=== PATIENT | female | born 1980 | race African-American/Black ===

== ENCOUNTER 2021-12-05 00:37 | Emergency (ER) | payer SELFPAY ==
[2021-12-05] MEDS ORDERED: DIPHENHYDRAMINE 25 MG TAB/CAP ONE (01:19)
[2021-12-05] MEDS ORDERED: FAMOTIDINE 20 MG TAB ONE (01:20)
[2021-12-05] MEDS ORDERED: predniSONE 20 MG TAB ONE (01:20)
--- OUTSIDE RECORDS SUMMARY | 2021-12-05 01:26 | XMS REPORT | Continuity of Care Document ---
:1980 Author Organization [facility] t Address [address] [place] [address] Care Team Providers Name Role Phone Unavailable Unavailable Unavailable Problems This patient has no known problems. Allergies, Adverse Reactions, Alerts This patient has no known allergies or adverse reactions. Medications This patient has no known medications. Procedures This patient has no known procedures. Results Test Description Test Time Test Comments Results Result Comments Source SARS-CoV-2 (COVID-19), RT-PCR/TMA 2021-08-19 13:36:25 Test Item Value Reference Range Interpretation Comme nts SARS-CoV-2 INTERPRETATION NEGATIVE SEE NOTE S ARS-CoV-2 RNA NOT (test code = 85920) DETECTED Negative results do not preclude SARS-C oV-2 infection and should notb e used as the sole basis for patient management deci sions. Negativeresults must be combined with clinical o bservations, patient history ,and epidemiological information. Optimum specime n types and timingfor peak viral levels during infectio ns caused by SARS-CoV-2 have notbeen determined. Col lection of multiple specim ens or types ofspecimens may be necessary to detect virus. I mproper specimencollect ion and handling, sequence variab ility under primers/probes, or organism present below t he limit of detection may l ead to falsenegative r esults. Positive and negative pr edictive values oftesting are h ighly dependent on prevalence. False negative testresults are more likely when prevalence is h igh. SOURCE (test code = 13523) NOT SPECIFIED Note: Methodology is Aster Armand Real-Time RT-PCR. The expected r esult or reference range is NEGATIVE (Not Detected). For more information regarding COVID -19 testing to include clinica linformation, methodology det ail, intended use, FDA author ization andrecommended fact sheets for patients or hea lthcare providers, see NewTest Announcement: S ARS-CoV-2 (COVID-19) by N AAT at URL below (note,fact shee ts are provided by method given in report:https:// www.fflap/c linicians/rashaun t-communications/ Alternatively, see downloadable PDF fact sheet at:https://www. fflap/COVID -19-RT-PCR Note : Methodology is Aster Armand [place] l-Time RT-PCR. The expected result or reference range is NEGATIVE (Not Detected). For more information regarding COVID -19 testing to include clinica linformation, methodology det ail, intended use, FDA author ization andrecommended fact sheets for patients or a lthcare providers, see Nexeon Announcement: S ARS-CoV-2 (COVID-19) by N AAT at URL below (note,fact shee ts are provided by method given in report:https:// www.fflap/c linicians/rashaun t-communications/ Alternatively, see downloadable PDF fact sheet at:https://www. fflap/COVID -19-RT-PCR UNLESS OTHERWISE INDIC ATED, ALL TESTING PERFORMED [facility], [facility]. [address] [place] [address] LABORATORY DIRE CTOR: OMID PILLAI M.D. CLIA NUMBER [id number] [place] [id number]
--- NOTE | 2021-12-05 04:22 | ER ---
Nurse's Notes [facility] Name: Yemi Freire Age: 41 yrs Sex: Female : 1980 Arrival Date: 12/05/2021 Time: 00:38 Bed 13 Private MD: Diagnosis: Allergic contact dermatitis due to cosmetics Presentation: 12/05 00:44 Chief complaint: Patient states: States got lashes done on evening, on Tuesday ll3 morning went back and got the lashes took off because they were uncomfortable, at 12 AM woke up and swelling was significantly worse, c/o of pain 10/10 and states its hard to see due to swelling. Coronavirus screen: Vaccine status: Patient reports receiving the 2nd dose of the covid vaccine. At this time, the client does not indicate any symptoms associated with coronavirus-19. Ebola Screen: No symptoms or risks identified at this time. Onset: The symptoms/episode began/occurred 2 day(s) ago. Anaphylaxis evaluation, no signs or symptoms of anaphylaxis were noted. Initial Sepsis Screen: Does the patient meet any 2 criteria? No. Patient's initial sepsis screen is negative. Does the patient have a suspected source of infection? No. Patient's initial sepsis screen is negative. Risk Assessment: Do you want to hurt yourself or someone else? Patient reports no desire to harm self or others. Onset of symptoms was December 04, 2021. 00:44 Method Of Arrival: Ambulatory ll3 00:44 Acuity: CLEM 3 ll3 00:48 Care prior to arrival: Medication(s) given: Benadryl at 7 PM last night. ll3 Triage Assessment: 00:48 General: Appears uncomfortable, Behavior is calm, cooperative. Pain: Complains of pain ll3 in right eye and left eye Pain currently is 10 out of 10 on a pain scale. EENT: Eyes Swollen, red.. Respiratory: Airway is patent Respiratory effort is even, unlabored, Respiratory pattern is regular, symmetrical, Denies shortness of breath. 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 - Social history:: Smoking status: Patient reports the use of cigarette tobacco products, smokes one pack cigarettes per day. Screenin:05 Abuse screen: Denies threats or abuse. Nutritional screening: No deficits noted. ke1 Tuberculosis screening: No symptoms or risk factors identified. Fall Risk No fall in past 12 months (0 pts). No secondary diagnosis (0 pts). No IV (0 pts). Ambulatory Aid- None/Bed Rest/Nurse Assist (0 pts). Gait- Normal/Bed Rest/Wheelchair (0 pts) Mental Status- Oriented to own ability (0 pts). Total Michel Fall Scale indicates No Risk (0-24 pts). Assessment: 03:03 Reassessment: Patient appears in no apparent distress at this time. Lying in bed with ke1 male family member Patient states symptoms have improved. Pain: Denies pain. Respiratory: Airway is patent Breath sounds are clear bilaterally. Vital Signs: 00:44 BP 140 / 91; Pulse 84; Resp 15; Temp 98.1(TE); Pulse Ox 100% on R/A; Weight 74.84 kg ll3 (R); Height 5 ft. 7 in. (170.18 cm) (R); Pain 10/10; 03:04 BP 119 / 87; Pulse 76; Resp 18; Pulse Ox 96% on R/A; ke1 00:44 Body Mass Index 25.84 (74.84 kg, 170.18 cm) ll3 ED Course: 00:38 Patient arrived in ED. kz 00:47 Morales Dinh MD is Attending Physician. mh7 00:48 Triage completed. ll3 00:48 Arm band placed on Patient placed in an exam room, on a stretcher, on monitoring and evaluation advisor, ll3 on pulse oximetry. 00:56 Eric Richards, DAR is Primary Nurse. ke1 03:05 Bed in low position. Call light in reach. ke1 04:20 Naomi Gupta MD is Referral Physician. 7 04:35 No provider procedures requiring assistance completed. Patient did not have IV access ke1 during this emergency room visit. Administered Medications: 01:20 Drug: Benadryl (diphenhydrAMINE) 50 mg Route: PO; ke1 01:20 Drug: Pepcid (famotidine) 20 mg Route: PO; ke1 01:20 Drug: predniSONE 60 mg Route: PO; ke1 Outcome: 04:21 Discharge ordered by . shawanda 04:35 Discharged to home ambulatory. ke1 04:35 Condition: good 04:35 Discharge instructions given to patient. 04:36 Patient left the ED. 1 Signatures: Morales Dinh MD MD 7 Rebecca Fraser RN RN 3 Eric Richards RN RN ke1 Estee Felton
--- NOTE | 2021-12-05 04:22 | EDPHYS ---
Physician Documentation [facility] Name: Yemi Freire Age: 41 yrs Sex: Female : 1980 Arrival Date: 12/05/2021 Time: 00:38 Bed 13 Private MD: ED Physician Morales Dinh HPI: 12/05 01:15 This 41 yrs old Black Female presents to ER via Ambulatory with complaints of Allergic mh7 Reaction, Facial Swelling. 01:15 The patient presents with itching, localized swelling. Onset: The symptoms/episode mh7 began/occurred yesterday. Associated signs and symptoms: Pertinent negatives: abdominal pain, Altered mental status chest pain, dysphagia, fever, headache, hives, Light headed nausea, rash, shortness of breath, Syncope vomiting. Possible causes: false eye lashes. At home the patient or guardian has treated the symptoms with Benadryl. Severity of symptoms: At their worst the symptoms were moderate yesterday, in the emergency department the symptoms are unchanged. 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 - Social history:: Smoking status: Patient reports the use of cigarette tobacco products, smokes one pack cigarettes per day. ROS: 01:15 Constitutional: Negative for fever, chills, and weight loss, Eyes: Negative for injury, mh7 pain, redness, and discharge, ENT: Negative for injury, pain, and discharge, Neck: Negative for injury, pain, and swelling, Cardiovascular: Negative for chest pain, palpitations, and edema, Respiratory: Negative for shortness of breath, cough, wheezing, and pleuritic chest pain, Abdomen/GI: Negative for abdominal pain, nausea, vomiting, diarrhea, and constipation, Back: Negative for injury and pain, : Negative for injury, bleeding, discharge, and swelling, MS/Extremity: Negative for injury and deformity, Neuro: Negative for headache, weakness, numbness, tingling, and seizure, Psych: Negative for depression, anxiety, suicide ideation, homicidal ideation, and hallucinations, Endocrine: Negative for neck swelling, polydipsia, polyuria, polyphagia, and marked weight changes, Hematologic/Lymphatic: Negative for swollen nodes, abnormal bleeding, and unusual bruising. Exam: 01:15 Constitutional: This is a well developed, well nourished patient who is awake, alert, mh7 and in no acute distress. 01:15 ENT: Nares patent. No nasal discharge, no septal abnormalities noted. Tympanic membranes are normal and external auditory canals are clear. Oropharynx with no redness, swelling, or masses, exudates, or evidence of obstruction, uvula midline. Mucous membranes moist. 01:15 Neck: Trachea midline, no thyromegaly or masses palpated, and no cervical lymphadenopathy. Supple, full range of motion without nuchal rigidity, or vertebral point tenderness. No Meningismus. Chest/axilla: Normal chest wall appearance and motion. Nontender with no deformity. No lesions are appreciated. Cardiovascular: Regular rate and rhythm with a normal S1 and S2. No gallops, murmurs, or rubs. Normal PMI, no JVD. No pulse deficits. Respiratory: Lungs have equal breath sounds bilaterally, clear to auscultation and percussion. No rales, rhonchi or wheezes noted. No increased work of breathing, no retractions or nasal flaring. Abdomen/GI: Soft, non-tender, with normal bowel sounds. No distension or tympany. No guarding or rebound. No evidence of tenderness throughout. Back: No spinal tenderness. No costovertebral tenderness. Full range of motion. Skin: Warm, dry with normal turgor. Normal color with no rashes, no lesions, and no evidence of cellulitis. MS/ Extremity: Pulses equal, no cyanosis. Neurovascular intact. Full, normal range of motion. Neuro: Awake and alert, GCS 15, oriented to person, place, time, and situation. Cranial nerves II-XII grossly intact. Motor strength 5/5 in all extremities. Sensory grossly intact. Cerebellar exam normal. Normal gait. Psych: Awake, alert, with orientation to person, place and time. Behavior, mood, and affect are within normal limits. 01:15 Head/face: Noted is swelling, that is mild, of the bilateral eye lids. 01:15 Eyes: Periorbital structures: appear normal, Pupils: equal, round, and reactive to light and accomodation, Extraocular movements: intact throughout, Conjunctiva: normal, Sclera: no appreciated abnormality, Lids and lashes: bilateral eyelids. Visual carrero: are intact, Nystagmus: is not appreciated. Vital Signs: 00:44 BP 140 / 91; Pulse 84; Resp 15; Temp 98.1(TE); Pulse Ox 100% on R/A; Weight 74.84 kg ll3 (R); Height 5 ft. 7 in. (170.18 cm) (R); Pain 10/10; 03:04 BP 119 / 87; Pulse 76; Resp 18; Pulse Ox 96% on R/A; ke1 00:44 Body Mass Index 25.84 (74.84 kg, 170.18 cm) ll3 MDM: 04:19 Differential diagnosis: anaphylaxis, angioedema, Hereditary Angioedema non IgE mediated mh7 drug reaction urticaria. Data reviewed: vital signs, nurses notes. Data interpreted: Pulse oximetry: on room air is 96 %. Interpretation: normal. Counseling: I had a detailed discussion with the patient and/or guardian regarding: the historical points, exam findings, and any diagnostic results supporting the discharge/admit diagnosis, the need for outpatient follow up, an allergy/court specialist, to return to the emergency department if symptoms worsen or persist or if there are any questions or concerns that arise at home. Response to treatment: the patient's symptoms have markedly improved after treatment. 04:21 Patient medically screened. [facility] Administered Medications: 01:20 Drug: Benadryl (diphenhydrAMINE) 50 mg Route: PO; ke1 01:20 Drug: Pepcid (famotidine) 20 mg Route: PO; ke1 01:20 Drug: predniSONE 60 mg Route: PO; ke1 Disposition Summary: 12/05/21 04:21 Discharge Ordered Location: Home [facility] Problem: new [facility] Symptoms: have improved [facility] Condition: Stable [facility] Diagnosis - Allergic contact dermatitis due to cosmetics [facility] Followup: [facility] - With: Private Physician - When: 1 - 2 days - Reason: Worsening of condition, Recheck today's complaints, Continuance of care, Re-evaluation by your physician Followup: [facility] - With: Naomi Gupta MD - When: 1 - 2 days - Reason: Worsening of condition, Recheck today's complaints Discharge Instructions: - Discharge Summary Sheet [facility] - Allergies, Adult [facility] Forms: - Medication Reconciliation Form [facility] - Thank You Letter [facility] - Antibiotic Education [facility] - Prescription Opioid Use [facility] Prescriptions: - Benadryl 25 mg Oral Capsule - take 1 capsule by ORAL route every 6 hours As needed; 30 tablet; Refills: 0, [facility] Product Selection Permitted - Pepcid 20 mg Oral Tablet - take 1 tablet by ORAL route every 12 hours for 5 days; 10 tablet; Refills: 0, [facility] Product Selection Permitted - Prednisone 20 mg Oral Tablet - take 2 tablets by ORAL route once daily for 5 days; 10 tablet; Refills: 0, [facility] Product Selection Permitted Signatures: Morales Dinh MD MD 7 Rebecca Fraser RN RN ll3 Eric Richards RN RN ke1
[2021-12-05 05:02] VITALS: TEMP 98.1
[2021-12-05 05:03] VITALS: BP 119/87; O2SAT 96
== END 2021-12-05 04:36 | disposition home or self-care (01) ==
LOC: ER 00:37
DX: L23.2 Allergic contact dermatitis due to cosmetics (principal); F17.210 Nicotine dependence, cigarettes, uncomplicated
CPT/HCPCS: 99283; J7512